=== PATIENT | male | born 1975 | race Caucasian/White ===

== ENCOUNTER 2020-12-04 07:15 | Outpatient (RCR) | payer BC, SELFPAY ==
[2020-11-11 12:31] VITALS: BMI 36.6
--- NOTE | 2020-11-20 12:44 | PCWOUND ---
Addendum entered by Svetlana Moreira RN 11/20/20 13:25: 1300: Patient showed up to appointment 1 hour late. see wound care assessment. Original Note: WOCN NOTE patient did not show up for his appointment, no call was made to wound center to cancel.
--- NOTE | 2020-12-17 09:48 | PCWOUND ---
WOCN NOTE patient's father called to state that wound on left foot seems to have callused over. Wants to cancel appointment at this time. Instructed to check the foot every day and if they notice any change or drainage to contact wound center for new appointment. Father stated understanding.
== END 2021-02-09 23:59 | disposition home or self-care (01) ==
LOC: ANHWOC 07:15
PROVIDERS: PCP Internal Medicine; Visit Provider Nurse Practitioner
DX: E11.621 Type 2 diabetes mellitus with foot ulcer (principal); L97.509 Non-pressure chronic ulcer of other part of unspecified foot with unspecified severity
CPT/HCPCS: 99212; A9270; G0463

== ENCOUNTER 2021-09-05 19:19 | Emergency (ER) | payer BC, SELFPAY ==
--- NOTE | ~2021-09-05 | XR_ITS ---
EXAM: XR femur LT min 2V HISTORY: KNEE SNAPPED/POPPED WHILE WALKING, knee deformity COMPARISON: None available FINDINGS: Comminuted distal femoral fracture, with greater than one shaft width lateral displacement , one half shaft width posterior displacement, and mild lateral angulation. Fracture lines extend int o the medial condyle and may involve the joint surface. No other fracture detected. IMPRESSION: Comminuted, displaced, and mildly angulated distal left femoral fracture, with possible extension to the knee joint. Reviewed, dictated and finalized at location K.
--- NOTE | ~2021-09-05 | CT_ITS ---
EXAMINATION: CT brain wo con DATE: 09/05/2021 20:23 INDICATION: Trauma. TECHNIQUE: Computed tomography (CT) of the head was performed without intravenous contrast. The mA wa s adjusted according to patient size. Iterative reconstruction technique was employed. The dose-lengt h product was 605.33 mGy-cm. COMPARISON: None FINDINGS: No acute intracranial hemorrhage or extra-axial fluid collection. No hydrocephalus, mass, or herniation. No acute ischemic infarct. Unremarkable dural venous sinus attenuation. No acute osseous abnormality. Small retention cyst/polyp in the left sphenoid. Otherwise the aerated spaces are clear. IMPRESSION: No acute intracranial process. Reviewed, dictated and finalized at location K.
--- NOTE | 2021-09-05 19:27 | ED.FALL ---
HPI - Fall General Chief Complaint: Fall Stated Complaint: fall down 5 stairs with left knee pain Source: patient and EMS Mode of arrival: EMS History of Present Illness HPI Narrative: 46-year-old male history of diabetes presented to the emergency department for evaluation of a left knee injury after having a fall down approximately 5 stairs. Patient states he was walking on stairs when he missed a step fall. Patient does report alcohol intake today but denies striking his head denies any loss consciousness. Patient denies any other pain than his left knee. Patient denies any chest pain or shortness of breath. Patient denies any abdominal pain. Patient denies associated numbness or weakness of the affected leg. Related Data Home Medications Medication Instructions Recorded Confirmed atorvastatin 40 mg PO HS 09/05/21 09/05/21 insulin NPH and regular human 20 unit SUBCUT QID 09/05/21 09/05/21 [Humulin 70/30 U-100 Insulin] insulin syringe-needle U-100 09/05/21 09/05/21 [TRUEplus Insulin] Allergies Allergy/AdvReac Type Severity Reaction Status Date / Time No Known Allergies Allergy Verified 09/05/21 19:34 Review of Systems Review of Systems: CONSTITUTIONAL: Denies fever, chills, or sweats. EYES: Denies visual changes, redness, or discharge. ENT: Denies rhinorrhea, congestion, sore throat, or otalgia. CARDIOVASCULAR: Denies chest pain, palpitations, or edema. RESPIRATORY: Denies cough or dyspnea. GASTROINTESTINAL: Denies abdominal pain, nausea, vomiting, or diarrhea. GENITOURINARY: Denies dysuria or hematuria. SKIN: Chronic sore on bottom of left foot, currently receiving wound care follow-up. MUSCULOSKELETAL: See HPI NEUROLOGIC: Denies headache, numbness, or weakness. Exam Narrative: APPEARANCE: Well appearing, no pain, no distress, well-nourished. HEAD: normocephalic, atraumatic. EYES: PERRLA/EOMI, conjunctivae clear. NOSE: Normal no drainage NECK: Supple. No adenopathy, no masses. RESPIRATORY: Airway patent, respirations nonlabored. Clear to auscultation bilaterally, no rales, rhonchi, wheezing. CARDIOVASCULAR: Regular rate and rhythm without murmurs rubs or gallops. ABDOMINAL: Soft, nontender, nondistended, normal bowel sounds MUSCULOSKELETAL: Moves all extremities. Deformity of left knee. Neurovascularly intact with strong distal pulses. NEURO: Alert. Cranial nerves II through XII intact. Neurologically intact. SKIN: Punctate wound over hematoma associated with the distal left femur Course Consultations Consultation #1: Consulted Dr Pierre for orthopedics and he recommended transfer to higher level of care. Case was discussed with Dr. Woodruff at [facility]. Recommended a knee immobilizer for stabilization. Patient's tetanus will be updated. Patient is also being started on Ancef for a suspected open fracture. Case was also discussed with the ED physician on staff at [facility] and patient was accepted for transfer. Patient was updated on the diagnosis and treatment plan. Patient was stable at time of transfer. Vital Signs Vital signs: Vital Signs Temperature 98.1 F 09/05/21 19:28 Pulse Rate 84 09/05/21 19:28 Respiratory Rate 18 09/05/21 19:28 Blood Pressure 126/74 09/05/21 19:28 Pulse Oximetry 98 09/05/21 19:28 Temperature 98.1 F 09/05/21 19:28 Pulse Rate 90 09/05/21 22:10 Respiratory Rate 16 09/05/21 22:10 Blood Pressure 130/79 09/05/21 22:10 Pulse Oximetry 95 09/05/21 22:10 Transfer Transfered to: [facility] MDM - Fall Lab Data Attestation: I reviewed the patient's lab results. Result diagrams: 09/05/21 19:32 09/05/21 19:32 Labs: Lab Results 09/05/21 09/05/21 09/05/21 Range/Units 19:27 19:32 19:32 WBC 8.3 (4.5-10.0) K/mm3 RBC 4.28 L (4.6-6.20) M/mm3 Hgb 14.0 (14.0-18.0) g/dL Hct 41.4 L (42.0-52.0) % MCV 96.7 (80-100) fl MCH 32.7 (26-34) pg MCHC 33.8 (32-36) g/dl RDW 11.9
[2021-09-05 19:28] VITALS: BP 126/74; PULSE 84; RESP 18; TEMP 36.7; O2SAT 98
[2021-09-05 19:36] LABS: Glucose Point of Care 118 mg/dl (65-105)
[2021-09-05 19:39] LABS: Basophils Absolute Auto 0.1 K/mm3 (0.0-0.1); Basophils Percent Auto 0.7 % (0.2-1.2); Eosinophils Absolute Auto 0.6 K/mm3 (0-0.3); Eosinophils Percent Auto 7.4 % (0-4.4); Hematocrit 41.4 % (42.0-52.0); Immature Granulocyte Absolute 0.03 K/mm3 (0.00-0.031); Immature Granulocyte Percent A 0.4 % (0-0.5); Lymphocytes Absolute Auto 2.48 K/mm3 (0.9-3.2); Lymphocytes Percent Auto 29.8 % (18.3-44.2); Mean Corpuscular HGB Conc 33.8 g/dl (32-36); Mean Corpuscular Hemoglobin 32.7 pg (26-34); Mean Corpuscular Volume 96.7 fl (80-100); Mean Platelet Volume 9.1 fl (7.4-10.4); Monocytes Absolute Auto 0.8 K/mm3 (0.1-0.6); Monocytes Percent Auto 9.1 % (2.6-8.5); Neutrophils Absolute Auto 4.4 K/mm3 (1.3-6.7); Neutrophils Percent Auto 52.6 % (45.5-73.1); Platelet Count Result 238 k/mm3 (150-375); Red Blood Count 4.28 M/mm3 (4.6-6.20); Red Cell Distribution Width 11.9 % (11.5-14.5); White Blood Count 8.3 K/mm3 (4.5-10.0)
[2021-09-05] MEDS: HYDROmorphone HCL INJ (*CRX) 1 MG/ML SYR 0.5 MG IV PUSH (19:43)
[2021-09-05 19:48] LABS: Ethanol 252 mg/dL (<10); Prothrombin Time 12.4 Seconds (11.1-14.7)
[2021-09-05 19:49] LABS: Partial Thromboplastin Time 25.7 SECONDS (22.3-36.8)
--- NOTE | 2021-09-05 19:49 | PC.NURSE ---
Pt to imaging via stretcher
--- NOTE | 2021-09-05 19:51 | PC.NURSE ---
PT reports drinking 5 beers today.
[2021-09-05 19:52] LABS: Alanine Aminotransferase 31 U/L (4-50); Albumin Level 4.8 g/dL (3.5-5.1); Alkaline Phosphatase 80 U/L (38-126); Anion Gap 14 mmol/L (8-16); Aspartate Amino Transferase 41 U/L (17-59); Bilirubin,Total 0.7 mg/dL (0.2-1.3); Blood Urea Nitrogen 8 mg/dL (9-20); Calcium 8.8 mg/dL (8.4-10.2); Carbon Dioxide 22 mmol/L (22-30); Chloride 95 mmol/L (98-107); Estimated CRCL calculation 157 ml/min; Estimated Glomerular Filt Rate > 60; Glucose 105 mg/dL (65-110); Potassium 3.5 mmol/L (3.4-5.0); Sodium 131 mmol/L (137-145)
[2021-09-05] MEDS: HYDROmorphone HCL INJ (*CRX) 1 MG/ML SYR IV PUSH ×2 (20:34→21:45)
[2021-09-05] MEDS: ceFAZolin 2 GM/D5W 50 ML 2 GM/50 ML BAG IVPB (21:19)
[2021-09-05 21:20] VITALS: BP 128/77; PULSE 84; RESP 18; O2SAT 98
--- NOTE | 2021-09-05 21:35 | PC.NURSE ---
Pt father Akshat called and updated.
[2021-09-05 21:36] VITALS: BP 118/76; PULSE 92; RESP 18; O2SAT 98
[2021-09-05 22:10] VITALS: BP 130/79; PULSE 90; RESP 16; O2SAT 95
== END 2021-09-05 22:24 | disposition short-term general hospital (02) ==
PROVIDERS: Emergency Provider Emergency Medicine; PCP Internal Medicine
DX: S72.432 Displaced fracture of medial condyle of left femur (principal); E11.9 Type 2 diabetes mellitus without complications; Z79.4 Long term (current) use of insulin; W10.9XXA Fall (on) (from) unspecified stairs and steps, initial encounter
CPT/HCPCS: 36415; 70450; 73552; 80053; 80307; 82948; 85025; 85610; 85730; 86850; 86900; 86901; 96365; 96375; 96376; 99285; J0690; J1170